=== PATIENT | male | born 1950 | race Two or more races ===

== ENCOUNTER 2016-10-22 21:20 | Emergency (ER) | payer BC ==
[~2016-10-22] VITALS: Ht 180.3 cm; Wt 99.8 kg
[~2016-10-22 21:20] MED LIST: ALLOPURINOL300 M1 ORAL; CIPRO500 MG PO; CIPROFLOXACIN500 M2 ORAL; LOSARTAN POTASS25 MG ORAL; METFORMIN HCL500 M1 ORAL; NKM; SHARK CARTILAG500 MG PO; VITAMIN D-32000 UNI1 PO; [UNRECOGNIZED DRUG - OTHER]
[2016-10-22] MEDS ORDERED: HYDROmorphone 1mg/ml Carpuject IVP ONE (22:15)
[2016-10-22 22:51] LABS: BASOPHILS % (AUTO) 1.1 % (0.0-2.0); EOSINOPHILS % (AUTO) 1.2 % (0.0-3.0); LYMPHOCYTES % (AUTO) 12.5 % (20.0-45.0); MEAN CORPUSCULAR HEMOGLOBIN 30.2 PG (27.0-31.0); MEAN CORPUSCULAR VOLUME 89 FL (80-99); MEAN PLATELET VOLUME 8.9 FL (6.5-10.1); MONOCYTES % (AUTO) 7.8 % (1.0-10.0); NEUTROPHILS % (AUTO) 77.4 % (45.0-75.0); PLATELET COUNT 170 K/UL (150-450); RED CELL DISTRIBUTION WIDTH 11.9 % (11.6-14.8); WHITE BLOOD COUNT 12.7 K/UL (4.8-10.8)
[2016-10-22 22:52] LABS: APPEARANCE,URINE CLEAR; KETONES,URINE NEGATIVE (NEGATIVE); LEUKOCYTE ESTERASE ,URINE NEGATIVE (NEGATIVE); NITRITE,URINE NEGATIVE (NEGATIVE); PH,URINE 5 (4.5-8.0); PROTEIN,URINE NEGATIVE (NEGATIVE); UROBILINOGEN,URINE NORMAL MG/DL (0.0-1.0)
[2016-10-22 23:02] LABS: BACTERIA,URINE FEW /HPF
[2016-10-22 23:07] LABS: CALCIUM 9.3 mg/dL (8.6-10.2); CREATININE 1.5 mg/dL (0.7-1.2); GLOMERULAR FILTRATION RATE 46.7 mL/min (>60); POTASSIUM 4.9 mEQ/L (3.4-4.9)
[2016-10-23] MEDS ORDERED: TAMSULOSIN HCL0.4 MG ORAL (00:09)
[2016-10-23] MEDS ORDERED: HYDROCODON-ACE1 EA15 ORAL (00:09)
--- NOTE | 2016-10-23 00:09 | Emergency Room Report ---
History of Present Illness General Chief Complaint: General Complaint Source: Patient Present Illness HPI Is a 66-year-old male with a history of multiple kidney stones in the past. He presents with chief complaint of kidney stone. He has left flank pain for the last 30 hours. He felt that he has one stone that stuck at the bladder area. Now with left flank pain and fullness. Pain is 10 out of 10. Tramadol is not helping. He called his urologist and has an appointment at 9:00 in the morning. He was told to come into the hospital for pain control and CT scan. Allergies: Coded Allergies: No Known Allergies (Unverified , 01/27/13) Patient History Past Medical History: see triage record, old chart reviewed Past Surgical History: other Pertinent Family History: none Social History: Denies: smoking Immunizations: other Reviewed Nursing Documentation: PMH: Agreed, PSxH: Agreed Nursing Documentation-PMH Past Medical History: No Stated History Hx Cardiac Problems: No Hx Cancer: No Hx Gastrointestinal Problems: No Hx Neurological Problems: No Review of Systems Eye: Denies: blurred vision, eye pain ENT: Denies: ear pain, nose congestion, throat swelling Respiratory: Denies: cough, shortness of breath Cardiovascular: Denies: chest pain, palpitations Gastrointestinal: Reports: abdominal pain Musculoskeletal: Denies: back pain, joint pain Skin: Denies: rash Neurological: Denies: headache, numbness Endocrine: Denies: increased thirst, increased urine Hematologic/Lymphatic: Denies: easy bruising All Other Systems: negative except mentioned in HPI Physical Exam Vital Signs Date Time Temp Pulse Resp B/P Pulse Ox O2 Delivery O2 Flow Rate FiO2 10/22/16 21:38 98.2 77 16 174/91 99 Room Air vitals normal except hypertension Sp02 EP Interpretation: reviewed, normal General Appearance: well appearing, alert, moderate distress - From pain Head: normocephalic, atraumatic Eyes: bilateral eye EOMI, bilateral eye PERRL ENT: hearing grossly normal, normal pharynx Neck: full range of motion, supple, no meningismus Respiratory: chest non-tender, lungs clear, normal breath sounds Cardiovascular #1: regular rate, rhythm, no murmur Gastrointestinal: normal bowel sounds, non tender, no mass, no organomegaly, no bruit, non-distended Musculoskeletal: back normal, gait/station normal, normal range of motion Psychiatric: mood/affect normal Skin: warm/dry Medical Decision Making Diagnostic Impression: Primary Impression: Ureteral stone with hydronephrosis ER Course Patient has ureteral stone. Pain is controlled now. He was to go home. I will discharge him with a copy of his CT scan and labs. He has an appointment tomorrow morning at 9:00. Lab Results Impression labs unremarkable CT/MRI/US Diagnostic Results CT/MRI/US Diagnostic Results : Imaging Test Ordered: CT scan abdomen and pelvis Impression Read by radiologist. Left ureteral stone 7 mm distal ureter. Moderate to severe hydronephrosis. Last Vital Signs Date Time Temp Pulse Resp B/P Pulse Ox O2 Delivery O2 Flow Rate FiO2 10/22/16 21:38 98.2 77 16 174/91 99 Room Air Status: improved Disposition: HOME, SELF-CARE Condition: Stable Scripts Tamsulosin Hcl (TAMSULOSIN HCL*) 0.4 Mg Cap.er.24h 0.4 MG ORAL BEDTIME, #30 CAP Prov: KEVYN HINES M.D. 10/23/16 Hydrocodone/Acetaminophen 5-325* (HYDROCODONE/ACETAMINOPHEN 5-325*) 1 Each Tablet 1 TAB ORAL Q6H Y for For Pain, #30 TAB 0 Refills Prov: KEVYN HINES M.D. 10/23/16 Referrals: NON PHYSICIAN (PCP) Additional Instructions: Keep the appointment with your urologist at 9 AM tomorrow. Return if symptom worsen. KEVYN HINES M.D. Oct 23, 2016 00:09
[2016-10-23 00:28] VITALS: BP 148/54
[2016-10-23 00:30] VITALS: BP 148/54
--- NOTE | 2016-10-23 09:35 | Diagnostic Imaging Report ---
Indication: Left flank pain Technique: Spiral acquisitions obtained through the abdomen and pelvis. No oral or IV contrast per urinary stone protocol. Multiplanar reconstructions were generated. Total dose length product and 79 mGycm. CTDIvol(s) right mGy Comparison: Renal ultrasound 05/07/2014 Findings: There is a 5 by 8mm calculus in the distal left ureter, approximately 2 cm proximal to the ureterovesical junction. There is marked left hydroureter, hydronephrosis, and considerable perinephric fat stranding, and fluid is seen tracking along Gerota's fascia well into the pelvis. There is a 6 mm left renal calculus in a lower pole calyx, versus 2 smaller adjacent calculi. No right renal or ureteral calculi demonstrated. No right hydroureter or hydronephrosis. The prostate is prominent, contains calcifications. The bladder is unremarkable. Lack of IV contrast limits assessment of the renal parenchyma. No gross renal parenchymal mass or cyst is demonstrated. Lack of IV contrast limits assessment of the other solid organs. The liver is unremarkable. There are cholecystectomy clips. No biliary ductal dilatation. The pancreas, spleen, adrenals are unremarkable. No retroperitoneal or mesenteric mass or adenopathy. No pelvic mass or adenopathy The appendix is normal. There are scattered colonic diverticula. No evidence of diverticulitis. No small bowel distention. No free or loculated intraperitoneal air or fluid is demonstrated. The distal esophagus, stomach, duodenum are unremarkable. Considerable atelectasis is seen at the left lung base, and there is a small amount posterior dependent atelectasis bilaterally. The heart is mildly enlarged. There are degenerative changes of the lumbar spine. There are surgical clips in the right groin and right side of the pelvis.. Impression: Positive for 5 x 8 mm distal left ureteral calculus, resulting in significant hydroceles, hydroureter, and fairly extensive perinephric fat stranding. Nonobstructive 6 mm left lower pole intrarenal calculus, versus 2 adjacent smaller calculi Colonic diverticulosis. Left basilar pulmonary atelectasis Cardiomegaly Incidental findings as noted, including prior pelvic surgery and cholecystectomy, degenerative lumbar spondylosis This agrees with the preliminary interpretation provided overnight by [facility]erad[facility] service. The CT scanner at [facility] is accredited by the [employer] and the scans are performed using protocols designed to limit radiation exposure to as low as reasonably achievable to attain images of sufficient resolution adequate for diagnostic evaluation.
== END 2016-10-23 00:30 | disposition home or self-care (01) ==
LOC: EMR 22:30
DX: N13.2 Hydronephrosis with renal and ureteral calculous obstruction (principal); K57.30 Diverticulosis of large intestine without perforation or abscess without bleeding; I51.7 Cardiomegaly; Z90.49 Acquired absence of other specified parts of digestive tract; J98.11 Atelectasis
CPT/HCPCS: 36415; 74176; 80048; 81003; 85025; 96361; 96374; 96375; 99284; J1170; J2405

== ENCOUNTER 2020-01-30 18:21 | Emergency (ER) | payer BC ==
[~2020-01-30] VITALS: Ht 180.3 cm; Wt 90.7 kg
[~2020-01-30 18:21] MED LIST changes: +HYDROCODON-ACE1 EA15 ORAL; +TAMSULOSIN HCL0.4 MG ORAL
--- NOTE | 2020-01-30 18:21 | NUR ---
ED Nurse Note: Pt ambulated to ED d/t infection on RT lower leg. Per pt, he was recently diagnosed with cellulitis and has been prescribed to take bactrim DS from his primary MD. Per pt, he had recent fever. Temp at triage was at 98.7F. Pt is AOx4, calm and cooperative. Placed on bed and gown. Will continue to monitor.
[2020-01-30 18:35] VITALS: BP 142/68
[2020-01-30 19:05] LABS: BASOPHILS % (AUTO) 1.1 % (0.0-2.0); EOSINOPHILS % (AUTO) 0.2 % (0.0-3.0); HEMATOCRIT 42.3 % (42.0-52.0); LYMPHOCYTES % (AUTO) 9.6 % (20.0-45.0); MEAN CORPUSCULAR VOLUME 91 FL (80-99); MONOCYTES % (AUTO) 5.1 % (1.0-10.0); NEUTROPHILS % (AUTO) 84.1 % (45.0-75.0); PLATELET COUNT 183 K/UL (150-450); RED BLOOD COUNT 4.62 M/UL (4.70-6.10); RED CELL DISTRIBUTION WIDTH 12.7 % (11.6-14.8); WHITE BLOOD COUNT 8.7 K/UL (4.8-10.8)
--- NOTE | 2020-01-30 19:12 | NUR ---
HAND-OFF: Report given to MOOSE De Jesus for continuity of care.
[2020-01-30 19:13] LABS: ANION GAP 12 mmol/L (5-15); BLOOD UREA NITROGEN 17 mg/dL (7-18); CALCIUM 9.2 MG/DL (8.5-10.1); CARBON DIOXIDE 22 MMOL/L (21-32); CHLORIDE 102 MMOL/L (98-107); CREATININE 1.3 MG/DL (0.55-1.30); POTASSIUM 4.2 MMOL/L (3.5-5.1); SODIUM 136 MMOL/L (136-145)
[2020-01-30 19:26] LABS: ALANINE AMINOTRANSFERASE 22 U/L (12-78); ALBUMIN 3.9 G/DL (3.4-5.0); ALBUMIN/GLOBULIN RATIO 1.2 (1.0-2.7); ALKALINE PHOSPHATASE 45 U/L (46-116); ASPARTATE AMINO TRANSFERASE 19 U/L (15-37)
[2020-01-30] MEDS ORDERED: CLINDAMYCIN HC300 MG ORAL (20:05)
[2020-01-30 20:15] VITALS: BP 142/68
--- NOTE | 2020-01-30 20:15 | NUR ---
ER DISCHARGE NOTE: Patient is cleared to be discharged per ERMD, pt is aox4, on room air, with stable vital signs. pt was given dc and prescription instructions, pt was able to verbalize understanding, pt id band and iv site removed without complications. pt is able to ambulate with steady gait. pt took all belongings.
--- NOTE | 2020-01-30 21:49 | Emergency Room Report ---
History of Present Illness General Chief Complaint: Skin Rash/Abscess Source: Patient Present Illness Allergies: Coded Allergies: No Known Allergies (Unverified , 01/27/13) COVID-19 Screening Contact w/high risk pt: No Recent Travel to affected area: No Experienced COVID-19 symptoms?: No Patient History Past Medical History: none Past Surgical History: none Pertinent Family History: none Social History: Denies: smoking, alcohol use, drug use Immunizations: UTD Reviewed Nursing Documentation: PMH: Agreed; PSxH: Agreed Nursing Documentation-PMH Past Medical History: No Stated History Hx Cardiac Problems: No Hx Cancer: No Hx Gastrointestinal Problems: No Hx Neurological Problems: No Physical Exam Vital Signs Date Time Temp Pulse Resp B/P (MAP) Pulse Ox O2 Delivery O2 Flow Rate FiO2 01/30/20 18:13 98.8 78 17 142/68 (92) 98 Medical Decision Making Diagnostic Impression: Primary Impression: Cellulitis of leg Qualified Codes: L03.115 - Cellulitis of right lower limb ER Course Hospital Course 70-year-old male presents with infection to right leg. States fevers and chills at home Differential diagnoses include: Cellulitis, abscess, rash. Clinical course Patient placed on stretcher. After initial history and physical I ordered labs , IVFs, IV Abx labs reviewed - no leukocytosis, Hb/Hct stable, no electrolyte abnormalities. Patient given IV clindamycin in ED. States his tetanus is up-to-date. Vitals stable. Labs unremarkable. Patient afebrile, nontoxic-appearing. I discussed with patient. I do not believe patient requires admission at this time. Patient states he did not tolerate the Bactrim well. Will switch to clindamycin. Safe for discharge for close outpatient follow-up. States he has a PMD Diagnosis - cellulitis of leg stable and discharged to home with Rx Clindamycin. f/u with PMD. return to ED if symptoms recur/worsen Labs Test 01/30/20 18:50 White Blood Count 8.7 K/UL (4.8-10.8) Red Blood Count 4.62 M/UL (4.70-6.10) Hemoglobin 14.0 G/DL (14.2-18.0) Hematocrit 42.3 % (42.0-52.0) Mean Corpuscular Volume 91 FL (80-99) Mean Corpuscular Hemoglobin 30.4 PG (27.0-31.0) Mean Corpuscular Hemoglobin Concent 33.2 G/DL (32.0-36.0) Red Cell Distribution Width 12.7 % (11.6-14.8) Platelet Count 183 K/UL (150-450) Mean Platelet Volume 10.6 FL (6.5-10.1) Neutrophils (%) (Auto) 84.1 % (45.0-75.0) Lymphocytes (%) (Auto) 9.6 % (20.0-45.0) Monocytes (%) (Auto) 5.1 % (1.0-10.0) Eosinophils (%) (Auto) 0.2 % (0.0-3.0) Basophils (%) (Auto) 1.1 % (0.0-2.0) Sodium Level 136 MMOL/L (136-145) Potassium Level 4.2 MMOL/L (3.5-5.1) Chloride Level 102 MMOL/L (98-107) Carbon Dioxide Level 22 MMOL/L (21-32) Anion Gap 12 mmol/L (5-15) Blood Urea Nitrogen 17 mg/dL (7-18) Creatinine 1.3 MG/DL (0.55-1.30) Estimat Glomerular Filtration Rate 54.4 mL/min (>60) Glucose Level 105 MG/DL (74-106) Calcium Level 9.2 MG/DL (8.5-10.1) Total Bilirubin 1.0 MG/DL (0.2-1.0) Aspartate Amino Transf (AST/SGOT) 19 U/L (15-37) Alanine Aminotransferase (ALT/SGPT) 22 U/L (12-78) Alkaline Phosphatase 45 U/L (46-116) Total Protein 7.2 G/DL (6.4-8.2) Albumin 3.9 G/DL (3.4-5.0) Globulin 3.3 g/dL Albumin/Globulin Ratio 1.2 (1.0-2.7) Last Vital Signs Date Time Temp Pulse Resp B/P (MAP) Pulse Ox O2 Delivery O2 Flow Rate FiO2 01/30/20 20:15 98.8 17 142/68 98 01/30/20 18:13 78 Status: improved Disposition: HOME, SELF-CARE Condition: Stable Scripts Clindamycin Hcl (CLINDAMYCIN HCL) 300 Mg Capsule 300 MG ORAL THREE TIMES A DAY, #21 CAP Prov: Hong Arriaga MD 01/30/20 Patient Instructions: Cellulitis, [id number] Hong Arriaga MD January 30, 2020 21:49
== END 2020-01-30 20:15 | disposition home or self-care (01) ==
LOC: EDBD 18:21 → EMR 18:59
DX: L03.115 Cellulitis of right lower limb (principal)
CPT/HCPCS: 36415; 80053; 85025; 96365; 99284; J7030; S0077